=== PATIENT | female | born 1985 | race Caucasian/White ===

== ENCOUNTER 2016-05-03 10:32 | Emergency (ER) | payer OTHER ==
[~2016-05-03] VITALS: Ht 180.3 cm; Wt 162.5 kg
[~2016-05-03 10:32] MED LIST: CYCL10TA6 PO; MTR600X PO; ONDA4TAB46 PO
[2016-05-03 10:50] VITALS: TEMP 36.8; Ht 180.3 cm; Wt 162.5 kg
[2016-05-03] MEDS ORDERED: ALBUT/IPRATROP 3MG/0.5MG NEB 3 ML VIAL INH STA (11:11)
--- NOTE | 2016-05-03 11:17 | EMERGENCY ROOM VISIT NOTE ---
History First contact with patient: 11:04 Chief Complaint: COUGH Stated Complaint: LUNGS, WEEZY,COUGHING ALRAJESH CONTEH Nursing Triage Summary: Dry, hacky cough. "I think I have bronchitis. In the morning I cough up black. I quit smoking almost a year ago." per pt. History of Present Illness The patient is a 31 year old female who presents to the Emergency Room with complaints of cough 1 week. The patient reports that she has had a persistent , hacking cough for the past one week. She reports that at times, the cough is productive of mucus and other times it is dry. She states that she often coughs up a black mucus in the morning, which has been normal for her since she stopped smoking one year ago. The patient reports that prior to 1 year ago, she had been a smoker for 22 years. She reports she has shortness of breath at times with the cough, especially at night. She also reports left ear pain. The patient has not been taking any medications for her cough. She denies any fevers, sore throat, chest pain, abdominal pain, nausea, vomiting, headache or neck pain. She does report her mother was recently diagnosed with bronchitis. Review of Systems A complete 10-point Review of Systems was discussed with the patient, with pertinent positives and negatives listed in the History of Present Illness. All remaining Review of Systems questions can be considered negative unless otherwise specified. Past Medical/Surgical History Medical Problems: (1) Abdominal pain (2) Acute adenoviral follicular conjunctivitis (3) Acute bronchitis (4) Back pain (5) Breast abscess of female (6) Encounter for removal of sutures (7) Finger laceration (8) Laryngitis, acute (9) Left flank pain (10) Pneumonia (11) Pyelonephritis (12) Rectal bleeding (13) Right ovarian cyst (14) Sprain Lumbar Region (15) UTI (lower urinary tract infection) (16) Vomiting Surgical Problems: (1) Hx of cholecystectomy (2) Hx of tonsillectomy (3) S/P spinal fusion Family History Cancer Diabetes mellitus FH: heart disease Social History Smoking Status: Former Smoker Alcohol Use: none Marital Status: single Occupation Status: unemployed Current/Historical Medications Scheduled Methylprednisolone (Medrol Dosepak), 0 PO DAILY Scheduled PRN Cyclobenzaprine Hcl (Flexeril), 10 MG PO TID PRN for Muscle Spasm Ibuprofen (Ibuprofen), 600 MG PO QID PRN for Pain Ondansetron Hcl (Zofran), 4 MG PO Q6H PRN for Nausea Allergies Coded Allergies: Cephalosporins (Verified Allergy, Intermediate, HIVES, 01/17/16) Hydrocortisone (Verified Allergy, Mild, RASH, 01/17/16) Neomycin (Verified Allergy, Mild, 01/17/16) Polymyxin B (Verified Allergy, Mild, 01/17/16) Codeine (Verified Allergy, Unknown, 01/17/16) Physical Exam Vital Signs Date Time Temp Pulse Resp B/P Pulse Ox O2 Delivery O2 Flow Rate FiO2 05/03/16 12:24 88 18 167/98 93 05/03/16 11:00 93 Room Air 05/03/16 10:50 36.8 89 20 150/98 93 Room Air Physical Exam VITALS: Vitals are noted on the nurse's note and reviewed by myself. Vital signs stable. GENERAL: This is a 31-year-old female, in no acute distress, nondiaphoretic, well-developed well-nourished. SKIN: Capillary reflex less than 2 seconds. HEENT: Normocephalic. PERRLA. EOMI. Nares patent. Mucous membranes moist. Neck is supple without nuchal rigidity. HEART: Regular rate and rhythm without murmurs gallops or rubs. LUNGS: Scattered expiratory wheezes. No retractions or accessory muscle use. ABDOMEN: Positive bowel sounds x 4. Soft, nontender to palpation. NEURO: Patient was alert and oriented to person place and time. Medical Decision & Procedures ER Provider Diagnostic Interpretation: TWO VIEW CHEST CLINICAL HISTORY: Cough and dyspnea. FINDINGS: PA and lateral chest radiographs are compared to study dated 06/20/2015. The examination is degraded by large body habitus. The cardiomediastinal silhouette is unremarkable. The lungs and pleural spaces are clear. There is no pneumothorax. The bony thorax appears intact. IMPRESSION: No active disease in the chest. Medications Administered Medications (Trade) Dose Ordered Sig/Jannet Route Start Time Stop Time Status Last Admin Dose Admin Albuterol/ Ipratropium (Duoneb) 3 ml NOW STAT INH 05/03/16 11:11 05/03/16 11:12 DC 05/03/16 11:36 3 ML Albuterol (Ventolin Hfa Inhaler) 2 puffs NOW ONCE INH 05/03/16 12:15 05/03/16 12:16 DC 05/03/16 12:20 2 PUFFS Medical Decision Differential diagnosis includes pneumonia, bronchitis, influenza, asthma exacerbation, pulmonary embolism, among others. The patient was evaluated as above. The patient presents complaining of cough and occasional shortness of breath. Vital signs stable and patient is afebrile on presentation. Chest x-ray was performed and showed no acute findings. The patient was given a DuoNeb treatment with relief of her dyspnea. The patient is a former smoker. She likely has an acute bronchitis. She will be treated with a Medrol Dosepak and albuterol inhaler. The patient does have a documented allergy to hydrocortisone, but states that she has been able to take oral steroids without difficulty. The patient is a borderline diabetic and was informed that if she were to check her blood sugars well taking this medication , they will be higher than normal. She was instructed to follow-up with her primary care provider or return here sooner for worsening shortness of breath or any new/concerning symptoms. Based on the patient's presentation, lab results, and imaging studies, I feel the patient is stable for outpatient treatment. Discharge instructions were reviewed with the patient. The patient verbalized understanding of my assessment and treatment plan and was discharged home in good condition. Impression Primary Impression: Acute bronchitis Departure Information Dispostion Home / Self-Care Condition GOOD Prescriptions Methylprednisolone (MEDROL DOSEPAK) 4 Mg Krunal 0 PO DAILY, #1 PKT Prov: Tahmina Winchester ., RACHANA 05/03/16 Referrals Geri Lee M.D. (MEDICAL) (PCP) Patient Instructions [facility] Additional Instructions You have been prescribed a Medrol Dosepak. This is a steroid which will help decrease your inflammation. Take the medicine as prescribed. Take the ENTIRE 6 day course of the steroids. Use the albuterol inhaler as needed for cough/shortness of breath. Tylenol or ibuprofen as needed for any pain/fevers. Follow-up with her primary care provider if symptoms persist. Return to the emergency department with any worsening shortness of breath, chest pain, high fevers or any other new/concerning symptoms. Problem Qualifiers Primary Impression: Acute bronchitis Bronchitis organism: unspecified organism Qualified Codes: J20.9 - Acute bronchitis, unspecified
--- NOTE | 2016-05-03 11:48 | DIAGNOSTIC IMAGING REPORT ---
TWO VIEW CHEST CLINICAL HISTORY: Cough and dyspnea. FINDINGS: PA and lateral chest radiographs are compared to study dated 06/20/2015. The examination is degraded by large body habitus. The cardiomediastinal silhouette is unremarkable. The lungs and pleural spaces are clear. There is no pneumothorax. The bony thorax appears intact. IMPRESSION: No active disease in the chest. Electronically signed by: Jerome Hernandez M.D. 05/03/2016 11:47 AM Dictated Date/Time: 05/03/2016 11:46 AM
[2016-05-03] MEDS ORDERED: METH4PAK PO (12:09)
[2016-05-03] MEDS ORDERED: ALBUTEROL HFA 8 GM INHALER INH ONE (12:15)
[2016-05-03 12:24] VITALS: BP 167/98; PULSE 88; O2SAT 93
== END 2016-05-03 12:26 | disposition home or self-care (01) ==
LOC: C.EDB 10:33 → C.EDC 12:26
DX: J20.9 Acute bronchitis, unspecified (principal); Z90.49 Acquired absence of other specified parts of digestive tract; Z90.89 Acquired absence of other organs; Z98.890 Other specified postprocedural states; Z80.9 Family history of malignant neoplasm, unspecified; Z83.3 Family history of diabetes mellitus; Z82.49 Family history of ischemic heart disease and other diseases of the circulatory system; Z87.891 Personal history of nicotine dependence; Z88.1 Allergy status to other antibiotic agents; Z88.5 Allergy status to narcotic agent

== ENCOUNTER 2017-06-03 08:14 | Emergency (ER) | payer OTHER ==
[~2017-06-03] VITALS: Ht 180.3 cm; Wt 150.8 kg
[~2017-06-03 08:14] MED LIST changes: -ONDA4TAB46 PO
[2017-06-03 08:18] VITALS: TEMP 36.6; Ht 180.3 cm; Wt 150.8 kg
[2017-06-03] MEDS ORDERED: SODIUM CHLORIDE 0.9% 1000ML 1,000 ML IV STA (08:49)
[2017-06-03] MEDS ORDERED: ONDANSETRON INJ 2 MG/ML 2 ML VIAL IV STA (08:49)
[2017-06-03 09:07] LABS: BASO % 0.2 %; BASO ABS # 0.03 K/uL (0-0.2); EOS % 1.9 %; EOS ABS # 0.24 K/uL (0-0.5); HEMATOCRIT 44.6 % (37-47); HEMOGLOBIN 15.7 g/dL (12.0-16.0); IG# 0.04 K/uL (0.00-0.02); LYMPH % 22.7 %; LYMPH ABS # 2.81 K/uL (1.2-3.4); MEAN CELL VOLUME 91.8 fL (80-100); MEAN CORPUSCULAR HEMOGLOBIN 32.3 pg (25-34); MEAN CORPUSCULAR HGB CONC 35.2 g/dl (32-36); MEAN PLATELET VOLUME 9.9 fL (7.4-10.4); MONO % 5.9 %; MONO ABS # 0.73 K/uL (0.11-0.59); NEUT ABS # 8.51 K/uL (1.4-6.5); PLATELET COUNT 315 K/uL (130-400); RED CELL DISTRIBUTION WIDTH CV 12.4 % (11.5-14.5); RED CELL DISTRIBUTION WIDTH SD 41.6 fL (36.4-46.3); WHITE BLOOD COUNT 12.36 K/uL (4.8-10.8)
[2017-06-03] MEDS ORDERED: OPTIRAY 320 IV PRN (09:15)
[2017-06-03 09:16] LABS: INR 0.9 (0.9-1.1); PTT PATIENT 23.9 SECONDS (21.0-31.0)
[2017-06-03 09:23] LABS: BLOOD UREA NITROGEN 10 mg/dl (7-18); CREATININE 1.13 mg/dl (0.60-1.20); GLUCOSE 209 mg/dl (70-99)
[2017-06-03 09:24] LABS: ALBUMIN 3.7 gm/dl (3.4-5.0); ALT/SGPT 51 U/L (12-78); AST/SGOT 27 U/L (15-37); CALCIUM 9.1 mg/dl (8.5-10.1); CARBON DIOXIDE 26 mmol/L (21-32); LIPASE 273 U/L (73-393); POTASSIUM 4.3 mmol/L (3.5-5.1); SODIUM 135 mmol/L (136-145)
[2017-06-03 09:26] LABS: ALKALINE PHOSPHATASE 81 U/L (45-117); TOTAL PROTEIN 8.6 gm/dl (6.4-8.2)
--- NOTE | 2017-06-03 12:00 | DIAGNOSTIC IMAGING REPORT ---
CT SCAN OF THE ABDOMEN AND PELVIS WITH IV CONTRAST CLINICAL HISTORY: Generalized abdominal pain. Rectal bleeding. COMPARISON STUDY: Abdominal CT dated 08/23/2014. TECHNIQUE: Following the IV administration of 94 cc of Optiray 320, CT scan of the abdomen and pelvis is performed from the lung bases to the proximal femora. Images are reviewed in the axial, sagittal, and coronal planes. IV contrast was administered without complication. A dose lowering technique was utilized adhering to the principles of ALARA. The examination is degraded by large body habitus, and by streak artifact from the body wall abutting the CT gantry. CT DOSE: 1427.59 mGycm FINDINGS: Lung bases: The heart is normal in size and without pericardial effusion. The lung bases are clear. Liver: The contrast-enhanced liver is enlarged, measuring 19.5 cm in length. The liver demonstrates diffusely diminished attenuation consistent with severe hepatic steatosis. There is no intrahepatic biliary ductal dilatation. The hepatic veins and portal veins are patent. Gallbladder: Surgically absent noting clips in the gallbladder fossa. Spleen: Normal in size and attenuation. Pancreas: Unremarkable. Adrenal glands: Unremarkable. Kidneys: The contrast enhanced kidneys are normal in size and without hydronephrosis. The kidneys enhance symmetrically. Abdominal vasculature: The abdominal aorta is normal in course and caliber. Bowel: The small bowel and colon are normal in course and caliber. The appendix is well-visualized and normal. Peritoneum: There is no intraperitoneal free air or abdominal ascites. There is a small fat-containing umbilical hernia. Lymphadenopathy: None. Pelvic viscera: The bladder is normal as visualized. The uterus is normal in appearance noting an intrauterine device in place. There are bilateral ovarian follicles. Skeletal structures: No lytic or blastic lesions are seen. There are postoperative changes from L4 -L5 spinal fusion. IMPRESSION: 1. There are no acute infectious or inflammatory findings in the abdomen or pelvis. 2. Hepatomegaly and severe hepatic steatosis. Electronically signed by: Jerome Hernandez M.D. 06/03/2017 11:59 AM Dictated Date/Time: 06/03/2017 11:55 AM
--- NOTE | 2017-06-03 12:47 | EMERGENCY ROOM VISIT NOTE ---
History First contact with patient: 08:22 Chief Complaint: RECTAL BLEEDING Stated Complaint: BLEEDING FROM RECTUM,VOMITING Nursing Triage Summary: Clots on the toilet paper History of Present Illness The patient is a 32 year old female who presents to the Emergency Room with complaints of rectal bleeding and one episode of blood in her vomit. The patient states that on Friday she has blood in her stools. Today she noticed that initially she had normal stools in the toilet and then passed blood clots. She also vomited one time this morning and saw bright red blood in the vomit. She also states that her food was undigested this morning when she vomited. She states she ate last night at 5 PM and the food she vomited this morning at 7 AM was undigested. The patient has not eaten anything today. The patient is also complaining of some upper abdominal pain and lower abdominal pain. The patient states that she was seen in the emergency room in January 2016 for the same reasons and followed up with her family doctor. No other testing was initiated at that time. The patient denies any shortness of breath or chest pain. The patient recently quit smoking. She states there is a family history on her mother side of colon cancer. He is currently undergoing education and evaluation for possible gastric bypass. Review of Systems 10 system review was performed and was negative unless stated otherwise history of present illness. Past Medical/Surgical History Medical Problems: (1) Abdominal pain (2) Acute adenoviral follicular conjunctivitis (3) Acute bronchitis (4) Back pain (5) Breast abscess of female (6) Encounter for removal of sutures (7) Finger laceration (8) Laryngitis, acute (9) Left flank pain (10) Pneumonia (11) Pyelonephritis (12) Rectal bleeding (13) Right ovarian cyst (14) Sprain Lumbar Region (15) UTI (lower urinary tract infection) (16) Vomiting Surgical Problems: (1) Hx of cholecystectomy (2) Hx of tonsillectomy (3) S/P spinal fusion Family History Cancer Diabetes mellitus FH: heart disease Social History Smoking Status: Never Smoker Alcohol Use: none Marital Status: single Occupation Status: unemployed Current/Historical Medications Scheduled PRN Cyclobenzaprine Hcl (Flexeril), 10 MG PO TID PRN for Muscle Spasm Ibuprofen (Ibuprofen), 600 MG PO QID PRN for Pain Physical Exam Vital Signs Date Time Temp Pulse Resp B/P (MAP) Pulse Ox O2 Delivery O2 Flow Rate FiO2 06/03/17 10:49 68 20 139/80 100 Room Air 06/03/17 09:23 80 20 134/88 99 Room Air 06/03/17 08:18 36.6 82 18 167/82 99 Room Air Physical Exam GENERAL: Morbidly obese 32-year-old female appears in no acute distress. MENTAL Status: Alert and oriented 3. MOUTH: Mucosa is moist NECK: Supple, no lymphadenopathy noted. No carotid bruits noted. LUNGS: Clear auscultation without wheezes rales or rhonchi. CARDIAC: Regular rate and rhythm without murmur. Pulses is full and equal throughout. BACK: No CVA tenderness noted. ABDOMEN: Positive bowel sounds all 4 quadrants. Soft, tenderness to palpation in the epigastric region and entire lower abdomen. Difficult to evaluate for organomegaly or masses secondary to patient size. RECTAL: There is a small external hemorrhoid noted at the 1 o'clock position without any active bleeding. Anal sphincter tone intact. No palpable internal masses. Stool guaiac was negative. EXTREMITIES: No cyanosis or edema noted. Medical Decision & Procedures ER Provider Diagnostic Interpretation: CT SCAN OF THE ABDOMEN AND PELVIS WITH IV CONTRAST CLINICAL HISTORY: Generalized abdominal pain. Rectal bleeding. COMPARISON STUDY: Abdominal CT dated 08/23/2014. TECHNIQUE: Following the IV administration of 94 cc of Optiray 320, CT scan of the abdomen and pelvis is performed from the lung bases to the proximal femora. Images are reviewed in the axial, sagittal, and coronal planes. IV contrast was administered without complication. A dose lowering technique was utilized adhering to the principles of ALARA. The examination is degraded by large body habitus, and by streak artifact from the body wall abutting the CT gantry. CT DOSE: 1427.59 mGycm FINDINGS: Lung bases: The heart is normal in size and without pericardial effusion. The lung bases are clear. Liver: The contrast-enhanced liver is enlarged, measuring 19.5 cm in length. The liver demonstrates diffusely diminished attenuation consistent with severe hepatic steatosis. There is no intrahepatic biliary ductal dilatation. The hepatic veins and portal veins are patent. Gallbladder: Surgically absent noting clips in the gallbladder fossa. Spleen: Normal in size and attenuation. Pancreas: Unremarkable. Adrenal glands: Unremarkable. Kidneys: The contrast enhanced kidneys are normal in size and without hydronephrosis. The kidneys enhance symmetrically. Abdominal vasculature: The abdominal aorta is normal in course and caliber. Bowel: The small bowel and colon are normal in course and caliber. The appendix is well-visualized and normal. Peritoneum: There is no intraperitoneal free air or abdominal ascites. There is a small fat-containing umbilical hernia. Lymphadenopathy: None. Pelvic viscera: The bladder is normal as visualized. The uterus is normal in appearance noting an intrauterine device in place. There are bilateral ovarian follicles. Skeletal structures: No lytic or blastic lesions are seen. There are postoperative changes from L4 -L5 spinal fusion. IMPRESSION: 1. There are no acute infectious or inflammatory findings in the abdomen or pelvis. 2. Hepatomegaly and severe hepatic steatosis. Electronically signed by: Jerome Hernandez M.D. 06/03/2017 11:59 AM Laboratory Results 06/03/17 08:56 Red Blood Count 4.86, Mean Corpuscular Volume 91.8, Mean Corpuscular Hemoglobin 32.3, Mean Corpuscular Hemoglobin Concent 35.2, Mean Platelet Volume 9.9, Neutrophils (%) (Auto) 69.0, Lymphocytes (%) (Auto) 22.7, Monocytes (%) (Auto) 5.9, Eosinophils (%) (Auto) 1.9, Basophils (%) (Auto) 0.2, Neutrophils # (Auto) 8.51, Lymphocytes # (Auto) 2.81, Monocytes # (Auto) 0.73, Eosinophils # (Auto) 0.24, Basophils # (Auto) 0.03 06/03/17 08:56 Test 06/03/17 08:56 White Blood Count 12.36 K/uL (4.8-10.8) Red Blood Count 4.86 M/uL (4.2-5.4) Hemoglobin 15.7 g/dL (12.0-16.0) Hematocrit 44.6 % (37-47) Mean Corpuscular Volume 91.8 fL (80-100) Mean Corpuscular Hemoglobin 32.3 pg (25-34) Mean Corpuscular Hemoglobin Concent 35.2 g/dl (32-36) Platelet Count 315 K/uL (130-400) Mean Platelet Volume 9.9 fL (7.4-10.4) Neutrophils (%) (Auto) 69.0 % Lymphocytes (%) (Auto) 22.7 % Monocytes (%) (Auto) 5.9 % Eosinophils (%) (Auto) 1.9 % Basophils (%) (Auto) 0.2 % Neutrophils # (Auto) 8.51 K/uL (1.4-6.5) Lymphocytes # (Auto) 2.81 K/uL (1.2-3.4) Monocytes # (Auto) 0.73 K/uL (0.11-0.59) Eosinophils # (Auto) 0.24 K/uL (0-0.5) Basophils # (Auto) 0.03 K/uL (0-0.2) RDW Standard Deviation 41.6 fL (36.4-46.3) RDW Coefficient of Variation 12.4 % (11.5-14.5) Immature Granulocyte % (Auto) 0.3 % Immature Granulocyte # (Auto) 0.04 K/uL (0.00-0.02) Prothrombin Time 9.8 SECONDS (9.0-12.0) Prothromb Time International Ratio 0.9 (0.9-1.1) Activated Partial Thromboplast Time 23.9 SECONDS (21.0-31.0) Partial Thromboplastin Ratio 0.9 Anion Gap 6.0 mmol/L (3-11) Est Creatinine Clear Calc Drug Dose 113.8 ml/min Estimated GFR () 73.4 Estimated GFR (Non- 63.4 BUN/Creatinine Ratio 8.6 (10-20) Calcium Level 9.1 mg/dl (8.5-10.1) Total Bilirubin 0.4 mg/dl (0.2-1) Direct Bilirubin < 0.1 mg/dl (0-0.2) Aspartate Amino Transf (AST/SGOT) 27 U/L (15-37) Alanine Aminotransferase (ALT/SGPT) 51 U/L (12-78) Alkaline Phosphatase 81 U/L (45-117) Total Protein 8.6 gm/dl (6.4-8.2) Albumin 3.7 gm/dl (3.4-5.0) Lipase 273 U/L (73-393) Medications Administered Medications (Trade) Dose Ordered Sig/Jannet Route Start Time Stop Time Status Last Admin Dose Admin Sodium Chloride 1,000 ml @ 999 mls/hr Q1H1M STAT IV 06/03/17 08:49 06/03/17 09:49 DC 06/03/17 08:49 999 MLS/HR Ondansetron HCl (Zofran Inj) 4 mg NOW STAT IV 06/03/17 08:49 06/03/17 08:51 DC 06/03/17 09:19 4 MG ED Course The patient was evaluated. EMR medication list were reviewed. IV access was obtained. CBC and differential, renal profile, LFTs and lipase levels were ordered. White count was only slightly elevated and glucose was elevated at 203 but this was nonfasting. Remainder labs are unremarkable. CT of the abdomen and pelvis was ordered interpreted by the radiologist as above without any acute findings. The patient was informed of the findings. 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 Medical Decision Differential diagnosis includes diverticulitis, GI bleed, small bowel obstruction, peptic ulcer disease [place] Drug Monitoring Program Search Results: patient reviewed within database Medication Reconcilliation Current Medication List: was personally reviewed by sc Blood Pressure Screening Patient's blood pressure: Normal blood pressure Impression Primary Impression: Rectal bleeding Additional Impression: Abdominal pain Departure Information Dispostion Home / Self-Care Condition GOOD Referrals Geri Lee M.D. (MEDICAL) (PCP) Forms HOME CARE DOCUMENTATION FORM, IMPORTANT VISIT INFORMATION, WORK / SCHOOL INSTRUCTIONS Patient Instructions Abdominal Pain - [facility], [facility] Additional Instructions Tylenol as needed for pain. Avoid spicy or acidic foods. Follow-up with gastroenterology as directed. Further evaluation and treatment per gastroenterology. Problem Qualifiers Additional Impression: Abdominal pain Abdominal location: lower abdomen, unspecified Qualified Codes: R10.30 - Lower abdominal pain, unspecified
[2017-06-03 13:19] VITALS: BP 143/78; PULSE 75; O2SAT 97
== END 2017-06-03 13:20 | disposition home or self-care (01) ==
LOC: C.EDB 08:15
DX: K62.5 Hemorrhage of anus and rectum (principal); R10.30 Lower abdominal pain, unspecified; Z87.891 Personal history of nicotine dependence; Z80.0 Family history of malignant neoplasm of digestive organs; Z90.49 Acquired absence of other specified parts of digestive tract

== ENCOUNTER 2017-06-16 10:01 | Emergency (ER) | payer OTHER ==
[~2017-06-16] VITALS: Ht 180.3 cm; Wt 150.0 kg
[2017-06-16 10:12] VITALS: TEMP 36.7; Ht 180.3 cm; Wt 150.0 kg
[2017-06-16] MEDS ORDERED: MoRPHine SULFATE 10 MG/ML CARP/VIAL IM STA (10:32)
[2017-06-16] MEDS ORDERED: CYCL10TA6 PO (10:43)
--- NOTE | 2017-06-16 10:56 | DIAGNOSTIC IMAGING REPORT ---
LUMBAR SPINE 2 OR 3 VIEWS CLINICAL HISTORY: lower back pain COMPARISON STUDY: 05/06/2015 FINDINGS: There are surgical clips within the right upper quadrant consistent with a prior cholecystectomy. An IUD is visualized. There are postsurgical changes present within the lower lumbar spine. There is evidence for an L5-S1 discectomy and interbody fusion. There is posterior pedicle screw fixation with pedicle screws the L4-L5 and S1 levels with adjoining spinal rods. Degenerative changes are present at the T11-12 level. Early posterior osteophytes are visualized the L3-4 level. There are no acute fractures. IMPRESSION: Postsurgical changes. No acute fractures or subluxations. Electronically signed by: Nura Wynn M.D. 06/16/2017 10:55 AM Dictated Date/Time: 06/16/2017 10:53 AM
[2017-06-16] MEDS ORDERED: OXYC1TAB3 PO (11:12)
[2017-06-16 11:27] VITALS: BP 167/90; PULSE 69; O2SAT 97
[2017-06-16] MEDS ORDERED: MTR600X PO (14:52)
--- NOTE | 2017-06-16 17:01 | EMERGENCY ROOM VISIT NOTE ---
History Report prepared by Miroslava: Mahendra Ac Under the Supervision of: Dr. Jared Malik D.O. First contact with patient: 10:16 Chief Complaint: BACK PAIN Stated Complaint: BACK WENT OUT History of Present Illness The patient is a 32 year old female who presents to the Emergency Room with complaints of intermittent "spasms" on her left lower back that began this morning at 0700, 3.5 hours ago. The pain is worsened with general movements. Pain is focal to the lower back. No radiation down the legs. Without movement pain is fairly nonexistent. It significantly worsens with any kind of movement or twisting turning. The patient states that she has had these episodes intermittently since she had a spinal fusion. She denies any traumas, trips, or falls that could have precipitated this episode. She also denies any numbness/ tingling in her legs or groins. She has not experienced any associated headache , change in vision, fevers, chest pain, shortness of breath, nausea, vomiting, diarrhea, pain with urination, and melena. Source of History: patient Onset: 3.5 hours ago Position: back (lower) Quality: other (Spasms) Timing: intermittent Modifying Factors (Worsening): movement Associated Symptoms: No weakness, No numbness Review of Systems See HPI for pertinent positives & negatives. A total of 10 systems reviewed and were otherwise negative. Past Medical & Surgical Medical Problems: (1) Abdominal pain (2) Acute adenoviral follicular conjunctivitis (3) Acute bronchitis (4) Back pain (5) Breast abscess of female (6) Encounter for removal of sutures (7) Finger laceration (8) Laryngitis, acute (9) Left flank pain (10) Pneumonia (11) Pyelonephritis (12) Rectal bleeding (13) Right ovarian cyst (14) Sprain Lumbar Region (15) UTI (lower urinary tract infection) (16) Vomiting Surgical Problems: (1) Hx of cholecystectomy (2) Hx of tonsillectomy (3) S/P spinal fusion Family History Cancer Diabetes mellitus FH: heart disease Social History Smoking Status: Never Smoker Alcohol Use: none Marital Status: single Occupation Status: unemployed Current/Historical Medications Scheduled PRN Cyclobenzaprine Hcl (Flexeril), 10 MG PO TID PRN for Muscle Spasm Ibuprofen (Ibuprofen), 600 MG PO QID PRN for Pain Oxycodone Immediate Rel Tab (Roxicodone Ir), 5 MG PO Q6H PRN for Pain Allergies Coded Allergies: Cephalosporins (Verified Allergy, Intermediate, HIVES, 06/16/17) Hydrocortisone (Verified Allergy, Mild, RASH, 06/16/17) Neomycin (Verified Allergy, Mild, 06/16/17) Polymyxin B (Verified Allergy, Mild, 06/16/17) Codeine (Verified Allergy, Unknown, 06/16/17) Physical Exam Vital Signs Date Time Temp Pulse Resp B/P (MAP) Pulse Ox O2 Delivery O2 Flow Rate FiO2 06/16/17 11:27 69 18 167/90 97 06/16/17 10:12 36.7 88 18 127/78 100 Room Air Physical Exam GENERAL: Sitting up in bed, alert, well appearing, well nourished, no distress, non-toxic EYE EXAM: normal conjunctiva. OROPHARYNX: no exudate, no erythema, lips, buccal mucosa, and tongue normal and mucous membranes are moist NECK: supple, no nuchal rigidity, no adenopathy, non-tender LUNGS: Clear to auscultation. Normal chest wall mechanics HEART: no murmurs, S1 normal and S2 normal ABDOMEN: abdomen soft, non-tender, normo-active bowel sounds, no masses, no rebound or guarding. BACK: Back is symmetrical on inspection and there is no deformity, There is acute reproducible tenderness in the lumbar paraspinal region, tracking to the gluteus. SKIN: no rashes and no bruising UPPER EXTREMITIES: upper extremities are grossly normal. LOWER EXTREMITIES: No pitting edema. Flexion/extension of hips, knees, ankles, and EHL are 5/5 bilaterally. Positive straight leg raise on the left. NEURO EXAM: Normal sensorium, cranial nerves II-XII grossly intact, normal speech, no gross weakness of arms, no gross weakness of legs. Medical Decision & Procedures ER Provider Diagnostic Interpretation: Radiology results as stated below per my review and the radiologist's interpretation: LUMBAR SPINE 2 OR 3 VIEWS CLINICAL HISTORY: lower back pain COMPARISON STUDY: 05/06/2015 FINDINGS: There are surgical clips within the right upper quadrant consistent with a prior cholecystectomy. An IUD is visualized. There are postsurgical changes present within the lower lumbar spine. There is evidence for an L5-S1 discectomy and interbody fusion. There is posterior pedicle screw fixation with pedicle screws the L4-L5 and S1 levels with adjoining spinal rods. Degenerative changes are present at the T11-12 level. Early posterior osteophytes are visualized the L3-4 level. There are no acute fractures. IMPRESSION: Postsurgical changes. No acute fractures or subluxations. Electronically signed by: Nura Wynn M.D. 06/16/2017 10:55 AM Dictated Date/Time: 06/16/2017 10:53 AM Medications Administered Medications (Trade) Dose Ordered Sig/Jannet Route Start Time Stop Time Status Last Admin Dose Admin Morphine Sulfate (MoRPHine SULFATE INJ) 6 mg NOW STAT IM 06/16/17 10:32 06/16/17 10:36 DC 06/16/17 10:53 6 MG ED Course ED COURSE: Vital signs were reviewed and showed normal vitals. The patients medical record was reviewed The above diagnostic studies were performed and reviewed. ED treatments and interventions as stated above. 1030: The patient was evaluated in room B8. A complete history and physical examination was performed. 1032: Ordered Morphine Sulfate 6 mg IM. 1115: Upon reevaluation, the patient is resting in bed.I discussed my findings with the patient and she understands and agrees with the treatment plan. Based on the patients age, coexisting illnesses, exam and lab findings the decision to treat as an outpatient was made. The patient remained stable while under my care. The patient appeared well at the time of discharge. Medical Decision Differential diagnoses includes but is not limited to lumbar radiculopathy, kidney stone, muscle strain, facture, cauda equina, mass, and disc herniation. Patient is a 32-year-old female who presents the ER for lower back spasms. She notes she gets this intermittently over the past several years after her spinal fusion. She denies any bowel or bladder symptoms. No numbness in the groin. No numbness or weakness in the legs. Able to ambulate without difficulty. Neurologically intact. On exam she has severe reproducible tenderness lower lumbar. No signs of cauda equina. No risk factors to suggest epidural abscess i.e. denies IV drug use, history of cancer or recent surgery. Patient was given IV morphine. X-rays were unremarkable. Patient was updated at bedside and discharged follow-up with PCP as an outpatient. Discussed with Pt concerning signs and symptoms to watch out for. Pt was instructed to follow up with their PCP and discussed with the patient their option to return to the ED at anytime for persistent or worsening symptoms. The appropriate anticipatory guidance and out-patient management, including indications for return to the emergency department, were explained at length to the patient and understood. [place] Drug Monitoring Program Search Results: patient reviewed within database, no issues identified Medication Reconcilliation Current Medication List: was personally reviewed by me Blood Pressure Screening Patient's blood pressure: Normal blood pressure Impression Primary Impression: Sciatica Scribe Attestation The scribe's documentation has been prepared under my direction and personally reviewed by me in its entirety. I confirm that the note above accurately reflects all work, treatment, procedures, and medical decision making performed by me. Departure Information Dispostion Home / Self-Care Prescriptions Oxycodone Immediate Rel Tab (ROXICODONE IR) 5 Mg Tab 5 MG PO Q6H Y for Pain, #10 TAB Prov: Jared Malik, DO 06/16/17 Referrals Geri Lee M.D. (MEDICAL) (PCP) Forms HOME CARE DOCUMENTATION FORM, IMPORTANT VISIT INFORMATION Patient Instructions My [facility] Additional Instructions Please follow up with your primary care doctor with in the next 24 hours. Any worsening of your symptoms, please return to the ED immediately. This includes any fevers greater than 100.4, worsening pain, weakness or numbness in the legs , numbness in the groin, unable to move her bowels, or any other concerning signs or symptoms from your standpoint. Please take Tylenol or Motrin as needed for pain. Do not lift anything heavier than 8 pounds. You were given medications during this visit that will inhibit your ability to drive, operate machinery and work. Please do NOT drive, operate machinery or work for the next 12hrs. You were also given a prescription for a narcotic. While taking this medication you should also not drive, operate machinery and or work. Problem Qualifiers Primary Impression: Sciatica Laterality: left Qualified Codes: M54.32 - Sciatica, left side
== END 2017-06-16 11:28 | disposition home or self-care (01) ==
LOC: C.EDB 10:02
DX: M54.32 Sciatica, left side (principal); Z88.1 Allergy status to other antibiotic agents; Z88.8 Allergy status to other drugs, medicaments and biological substances; Z88.5 Allergy status to narcotic agent

== ENCOUNTER 2022-01-28 07:15 | Observation (INO) ==
[2022-01-28] MEDS ORDERED: MoRPHine SULFATE 4 MG/ML 1 ML CARP\\VIAL IV STA (07:33)
--- NOTE | 2022-01-28 07:38 | Communication Note ---
Date of Service: January 28, 2022 I personally saw the patient. Patient's case was discussed with Dr. Chang, ED attending, and I participated in MDM. Please see attending documentation for full details. Resident Activity Tracking Resident Involvement: Resident Care Provided Care Provided: Adult ED
[2022-01-28 07:58] LABS: Hematocrit (blood only) 43.6 % (34.1-44.9); Hemoglobin 15.3 g/dl (12.0-16.0); Mean Corpuscular Hemoglobin 31.5 pg (25.0-34.0); Mean Corpuscular Hgb Conc 35.1 g/dL (32.0-36.0); Mean Corpuscular Volume 89.7 fL (80.0-100.0); Mean Platelet Volume 9.8 fL (9.4-12.3); Platelet Count 413 K/uL (130-400); RDW Coefficient of Variation 11.6 % (11.5-14.5); Red Blood Count 4.86 M/uL (3.93-5.22); White Blood Count 15.54 K/ul (4.8-10.8)
--- NOTE | 2022-01-28 07:58 | Emergency Department Note ---
Impression & Plan Abscess, Tobacco use, Acute dehydration, Back pain, Acute hyperglycemia ED Provider Note NAME: ROSALIE PALACIOS AGE: 37 SEX: F : 1985 ARRIVES VIA: Walk-In INFORMANT: Patient, ED PROVIDER(S): Tunde Chang MD Chief Complaint: Back pain HPI: 37yo female with PMHx significant for lumbar spinal fusion surgery in 2009 who presents to ED for [id number] mid central back pain. Patient reports that she has chronic low back since her surgery for which she takes Ibuprofen 600mg PO daily with relief, but woke up two days ago with severe mid central back pain that is unlike her chronic pain. Pain has been 6-8/10 in severity, is non-radiating, and patient denies LE weakness/numbness/tingling, saddle ane sthesia or bowel/urine changes. She ran out of her home Ibuprofen and thus has not tried anything for current pain. Of note patient reports chronic recurring abscesses on bilateral inner thighs that usually open and drain purulent fluid for several days and then resolve, before recurring several weeks later. Patient currently has a left inner thigh abscess that opened on its own this morning and is currently draining purulent, bloody fluid. Patient has some pain associated with the abscess but not severe, and denies fever/chills, weakness, or decreased appetite. Patient denies prior history of hidradenitis. ROS: See HPI for pertinent positives and negatives. A total of 10 systems were revi ewed and otherwise negative. Past medical history: See below Surgical history: See below Social history: See below Physical Exam: GENERAL: NAD, wearing a mask, non-toxic. Poor hygiene, wearing glasses. EYE EXAM: Normal conjunctiva. PERRL, no anisocoria and EOM's grossly intact w/o pain. NECK: Supple, no nuchal rigidity, no adenopathy, non-tender. No signs of meningismus. FROM of the neck with good chin to chest and neck extension. No stridor. LUNGS: Clear to auscultation. Normal chest wall mechanics. HEART: Tachycardic and regular, no MRG. ABDOMEN: Abdomen soft, non-tender, normo-active bowel sounds, no masses, no rebound or guarding. BACK: No CVA TTP. Lower thoracic midline possible lipoma with no overlying skin changes approximately 2 x 1 cm, no bruising, mild TTP SKIN: Cellulitis noted to the left lower abdominal wall with associated drainage. UPPER EXTREMITIES: Upper extremities are grossly normal. LOWER EXTREMITIES: Grossly normal, no edema. No saddle anesthesia. NEURO EXAM: A&O x3, cranial nerves II-XII grossly intact, normal speech, moves all 4 extremities. Differential diagnoses: Cellulitis, abscess, MRSA infection, DVT, necrotizing fasciitis, dermatitis, drug eruption, allergic reaction, as well as other pathologies. Course: Patient was seen and evaluated the bedside. Full history physical exam was performed. Imaging Studies: See Below Cardiac monitoring: An order was placed for continuous cardiac monitoring. The monitor shows a rate of 112 with tachycardic and regular rhythm. MDM: Patient presents due to concern for back pain and lower abdominal wall cellulitis. The patient did have bladder completed which shows normal H&H. Patient's white count is elevated 15 with thrombocytosis at 413. Kidney function grossly unremarkable. Pseudohyponatremia 129. Elevations in ESR and CRP. Glucose of 471. IV fluids ordered. Patient does have a prior history of some elevated blood sugars but is not currently on treatment. Given the patient's lower abdominal wall cellulitis with uncontrolled diabetes to believe the patient would benefit from admission at this time. Thoracic back x-ray ordered. Degenerative changes noted but without any obvious fracture patient does have a palpable area over the lower midline thoracic spine which may be con sistent with a lipoma. Patient has no overlying rash or skin changes. Patient was ordered clinda. Patient was admitted to the medicine service. Past Med/Surg History Medical History Abscess Breast abscess of female Diabetes Pyelonephritis Surgical History Hx of cholecystectomy Hx of tonsillectomy S/P spinal fusion Social History Smoking Status: Current every day smoker Tobacco Type: Cigarettes Preferred Language: Swedish Feels Safe at Home: Yes Allergies Allergies Allergy/AdvReac Type Severity Reaction Status Date / Time codeine Allergy Severe BLOOD CLOT Verified 07/17/21 23:30 Cephalosporins Allergy Intermediate HIVES Verified 07/17/21 23:30 hydrocortisone Allergy Mild RASH Verified 07/17/21 23:30 neomycin Allergy Mild RASH Verified 07/17/21 23:30 polymyxin B Allergy Mild RASH Verified 07/17/21 23:30 Home Meds Home Medications Medication Instructions Recorded Confirmed acetaminophen 500 mg tablet 1,000 mg PO TID PRN Pain 07/17/21 07/17/21 (Tylenol Extra Strength) Previous Rx's Medication Instructions Recorded albuterol sulfate 90 mcg/actuation 2 puffs inhalation 6XD PRN 07/17/21 aerosol inhaler shortness of breath or wheezing #6.7 grams benzonatate 100 mg capsule 100 mg PO TID PRN cough #15 caps 07/17/21 Results & Data (ED) Vital Signs Vital Signs - 24 hr 01/28/22 07:18 01/28/22 09:16 01/28/22 08:09 Temperature 36.5 C Temperature Source Temporal Artery Scan Pulse Rate 111 H 103 H Pulse Rate [Apical] 100 H Pulse Rate from SpO2 Sensor 104 H Pulse Rhythm Regular Respiratory Rate 16 18 14 Respiratory Effort / Characteristics Non-Labored Spontaneous Respiratory Depth Normal Blood Pressure 140/83 Blood Pressure [Left Arm] 112/75 Blood Pressure Mean 102 Blood Pressure Mean [Left Arm] 87 Pulse Oximetry 98 96 96 Oxygen Delivery Method Room Air Room Air Sepsis Recent Fever Within 48 Hours No Sepsis New/Unexplained Change in Mental Status No Sepsis Action Taken by Nursing No Action Required 01/28/22 08:18 01/28/22 09:06 01/28/22 10:00 Temperature Temperature Source Pulse Rate 105 H Pulse Rate [Apical] Pulse Rate from SpO2 Sensor 107 H Pulse Rhythm Respiratory Rate 16 Respiratory Effort / Characteristics Respiratory Depth Blood Pressure 112/75 139/98 Blood Pressure [Left Arm] Blood Pressure Mean 87 111 Blood Pressure Mean [Left Arm] Pulse Oximetry 97 95 98 Oxygen Delivery Method Sepsis Recent Fever Within 48 Hours Sepsis New/Unexplained Change in Mental Status Sepsis Action Taken by Nursing 01/28/22 10:00 01/28/22 11:00 01/28/22 11:00 Temperature Temperature Source Pulse Rate 100 H 92 H Pulse Rate [Apical] Pulse Rate from SpO2 Sensor Pulse Rhythm Respiratory Rate 29 H 9 L Respiratory Effort / Characteristics Respiratory Depth Blood Pressure 128/92 118/86 Blood Pressure [Left Arm] Blood Pressure Mean 104 96 Blood Pressure Mean [Left Arm] Pulse Oximetry 97 Oxygen Delivery Method Sepsis Recent Fever Within 48 Hours Sepsis New/Unexplained Change in Mental Status Sepsis Action Taken by Nursing 01/28/22 11:00 Temperature Temperature Source Pulse Rate Pulse Rate [Apical] 104 H Pulse Rate from SpO2 Sensor Pulse Rhythm Respiratory Rate 18 Respiratory Effort / Characteristics Respiratory Depth Blood Pressure Blood Pressure [Left Arm] 118/86 Blood Pressure Mean Blood Pressure Mean [Left Arm] 96 Pulse Oximetry 97 Oxygen Delivery Method Room Air Sepsis Recent Fever Within 48 Hours Sepsis New/Unexplained Change in Mental Status Sepsis Action Taken by [facility] Medications Current Medication List: was personally reviewed by me Laboratory Data Attestation: I reviewed the patient's lab results. Result diagrams: 01/28/22 07:49 01/28/22 07:49 Lab Results 01/28/22 01/28/22 01/28/22 Range/Units 07:49 07:49 07:49 WBC 15.54 H (4.8-10.8) K/ul RBC 4.86 (3.93-5.22) M/uL Hgb 15.3 (12.0-16.0) g/dl Hct 43.6 (34.1-44.9) % MCV 89.7 (80.0-100.0) fL MCH 31.5 (25.0-34.0) pg MCHC 35.1 (32.0-36.0) g/dL RDW Std Deviation 38.0 (36.4-46.3) fL RDW Coeff of Ashley 11.6 (11.5-14.5) % Plt Count 413 H (130-400) K/uL MPV 9.8 (9.4-12.3) fL Immature Gran % (Auto) 0.5 % Neut % (Auto) 57.1 % Lymph % (Auto) 32.9 % Canadian % (Auto) 7.7 % Eos % (Auto) 1.3 % Baso % (Auto) 0.5 % Neut # (Auto) 8.90 H (1.4-6.5) K/uL Lymph # (Auto) 5.11 H (1.2-3.4) K/uL Canadian # (Auto) 1.19 H (0.24-0.82) K/uL Eos # (Auto) 0.20 (0-0.50) K/uL Baso # (Auto) 0.07 (0-0.2) K/uL Immature Gran # (Auto) 0.07 H (0.00-0.02) K/uL Polychromasia 1+ ESR 50 H (0-20) mm/hr Sodium 129 L (136-145) mmol/L Potassium 3.8 (3.5-5.1) mmol/L Chloride 97 L (98-107) mmol/L Carbon Dioxide 25 (21-32) mmol/L Anion Gap 7 (3-11) BUN 15 (6-23) mg/dl Creatinine 0.88 (0.6-1.2) mg/dl Est Cr Clr Drug Dosing 129.5 ml/min Est GFR ( Amer) 95.9 ml/min Est GFR (Non-Af Amer) 82.8 ml/min BUN/Creatinine Ratio 17.0 (10-20) Glucose 471 H* (70-99(Fasting)) mg/dl Estimat Average Glucose mg/dl Hemoglobin A1c (4.5-5.6) % Calcium 8.7 (8.5-10.1) mg/dl Total Bilirubin 0.4 (0.2-1.0) mg/dl AST 9 L (13-39) U/L ALT 15 (7-52) U/L Alkaline Phosphatase 78 (34-104) U/L C-Reactive Protein 5.70 H (0-0.5) mg/dl Total Protein 7.3 (6.0-8.3) gm/dl Albumin 3.6 (3.4-5.0) gm/dl Globulin 3.7 (2.5-4.0) gm/dl Albumin/Globulin Ratio 1.0 (0.9-2) Procalcitonin (0-0.5) ng/ml SARS-CoV-2, RNA, NAAT (NEGATIVE) 01/28/22 01/28/22 01/28/22 Range/Units 07:49 07:49 09:50 WBC (4.8-10.8) K/ul RBC (3.93-5.22) M/uL Hgb (12.0-16.0) g/dl Hct (34.1-44.9) % MCV (80.0-100.0) fL MCH (25.0-34.0) pg MCHC (32.0-36.0) g/dL RDW Std Deviation (36.4-46.3) fL RDW Coeff of Ashley (11.5-14.5) % Plt Count (130-400) K/uL MPV (9.4-12.3) fL Immature Gran % (Auto) % Neut % (Auto) % Lymph % (Auto) % Canadian % (Auto) % Eos % (Auto) % Baso % (Auto) % Neut # (Auto) (1.4-6.5) K/uL Lymph # (Auto) (1.2-3.4) K/uL Canadian # (Auto) (0.24-0.82) K/uL Eos # (Auto) (0-0.50) K/uL Baso # (Auto) (0-0.2) K/uL Immature Gran # (Auto) (0.00-0.02) K/uL Polychromasia ESR (0-20) mm/hr Sodium (136-145) mmol/L Potassium (3.5-5.1) mmol/L Chloride (98-107) mmol/L Carbon Dioxide (21-32) mmol/L Anion Gap (3-11) BUN (6-23) mg/dl Creatinine (0.6-1.2) mg/dl Est Cr Clr Drug Dosing ml/min Est GFR ( Amer) ml/min Est GFR (Non-Af Amer) ml/min BUN/Creatinine Ratio (10-20) Glucose (70-99(Fasting)) mg/dl Estimat Average Glucose 286 mg/dl Hemoglobin A1c 11.6 H (4.5-5.6) % Calcium (8.5-10.1) mg/dl Total Bilirubin (0.2-1.0) mg/dl AST (13-39) U/L ALT (7-52) U/L Alkaline Phosphatase (34-104) U/L C-Reactive Protein (0-0.5) mg/dl Total Protein (6.0-8.3) gm/dl Albumin (3.4-5.0) gm/dl Globulin (2.5-4.0) gm/dl Albumin/Globulin Ratio (0.9-2) Procalcitonin 0.05 (0-0.5) ng/ml SARS-CoV-2, RNA, NAAT NEGATIVE (NEGATIVE) Administered Medications Discontinued Medications Sodium Chloride (Nss 1000ml) 1,000 mls @ 999 mls/hr IV .Q1H1M ONE Stop: 01/28/22 09:55 Last Infusion: 01/28/22 10:13 Dose: 0 mls/hr Documented By: Admin: 01/28/22 09:08 Dose: 999 mls/hr Documented By: OL Clindamycin Phosphate (Cleocin/D5w) 900 mg in 50 mls @ 100 mls/hr IV NOW ONE Stop: 01/28/22 09:28 Last Infusion: 01/28/22 10:31 Dose: 0 mls/hr Documented By: Admin: 01/28/22 09:57 Dose: 100 mls/hr Documented By: ARS Morphine Sulfate (Morphine Sulfate 4 Mg/Ml 1 Ml Carp\Vial) 4 mg IV NOW STA Stop: 01/28/22 07:34 Last Admin: 01/28/22 07:51 Dose: 4 mg Documented By: ARS Imaging Data Radiologist's Impression: Thoracic Spine X-Ray 01/28/22 07:33 THORACIC SPINE 3 VIEWS HISTORY: back pain COMPARISON: None. FINDINGS: There is no fracture. No subluxation. Paraspinal soft tissues are unremarkable. 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 This is most pronounced within the mid thoracic spine. IMPRESSION: Mild to moderate degenerative changes within the thoracic spine. No fractures. ACT 112: Negative or not required by law. Electronically signed by: Stephen Rodriguez M.D. 01/28/2022 9:28 AM Discharge Plan Visit Data Chief Complaint: Infection, Wound Stated Complaint: MID BACK PAIN ED Provider: Tunde Chang ED Midlevel Provider: Mauro De Guzman Discharge Problem: Abscess, Tobacco use, Acute dehydration, Back pain, Acute hyperglycemia Patient Disposition: Admitted As Inpatient Discharge Instructions Interventions: ED Discharge Assessment Last Done: 01/28/22 13:25
[2022-01-28 08:31] LABS: Basophils # (auto) 0.07 K/uL (0-0.2); Basophils % (auto) 0.5 %; Eosinophils % (auto) 1.3 %; Immature Granulocytes # (auto) 0.07 K/uL (0.00-0.02); Immature Granulocytes % (auto) 0.5 %; Lymphocytes # (auto) 5.11 K/uL (1.2-3.4); Lymphocytes % (auto) 32.9 %; Monocytes # (auto) 1.19 K/uL (0.24-0.82); Monocytes % (auto) 7.7 %; Neutrophils % (auto) 57.1 %; Polychromasia 1+
[2022-01-28 08:47] LABS: Albumin Level 3.6 gm/dl (3.4-5.0); Bilirubin,Total 0.4 mg/dl (0.2-1.0); C Reactive Protein 5.7 mg/dl (0-0.5); Calcium 8.7 mg/dl (8.5-10.1); Creatinine Clr Calc Pharmacy 129.5 ml/min; Est GFR (African American) 95.9 ml/min; Est GFR (Non-African American) 82.8 ml/min; Globulin 3.7 gm/dl (2.5-4.0); Potassium 3.8 mmol/L (3.5-5.1); Total Protein 7.3 gm/dl (6.0-8.3)
[2022-01-28] MEDS ORDERED: SODIUM CHLORIDE 0.9% 1000ML 1,000 ML IV ONE (08:55)
[2022-01-28] MEDS ORDERED: CLINDAMYCIN/D5W 900 MG/50 ML BAG IV ONE (08:59)
--- NOTE | 2022-01-28 09:29 | XRay Report ---
THORACIC SPINE 3 VIEWS HISTORY: back pain COMPARISON: None. FINDINGS: There is no fracture. No subluxation. Paraspinal soft tissues are unremarkable. There is m ild to moderate degenerative disc disease throughout the thoracic spine. This is most pronounced with in the mid thoracic spine. IMPRESSION: Mild to moderate degenerative changes within the thoracic spine. No fractures. ACT 112: Negative or not required by law. Electronically signed by: Stephen Rodriguez M.D. 01/28/2022 9:28 AM
[2022-01-28 10:08] LABS: Estimated Average Glucose 286 mg/dl; Hemoglobin A1C 11.6 % (4.5-5.6)
--- NOTE | 2022-01-28 10:14 | History & Physical Report ---
Date of Service January 28, 2022 Assessment & Plan (1) Hidradenitis suppurativa: Plan: - Has several areas with scar tissue from previous abscesses in b/l axilla, breast folds, abdomen, and groin consistent with hydradenitis suppurativa. - There is no active purulent drainage for wound collection. - General surgery consult and antibiotics as above. - Recommend seeing dermatology as outpatient for management, as well as an medical office assistant to determine if she has a true penicillin allergy in order to guide options for treatment in the future. (2) Back pain: Plan: - 1 day of thoracic pain with development of small, nickel sized lump c/w fluid collection. - Will order soft tissue U/S and have general surgery on consult to determine if this collection is drainable. - Received clindamycin in ED; will hold off on further abx pending blood cultures and general surgery to weigh in regarding potential for drainage. - If no indication for drainage, pt is reportedly penicillin allergic--unknown reaction--therefore, if indication for drainage by general surgery, will will treat with daptomycin, Levaquin, and metronidazole. (3) Diabetes: Plan: - BSG 471, A1c 11.6%--will start patient on basal/bolus insulin while here and have life skills educator/pharmacy glycemic consult placed for assistance with meeting patient's insulin needs. - Patient counseled on need for weight loss and insulin to better control her diabetes as well as minimize infections, recommend she follow-up with her PCP for ongoing management of her diabetes. Plan - Admit to med/surg. - SCDs encouraged, will defer on chemoppx given age, mobility. - Full Code. History of Present Illness Chief Complaint: mid back pain x 2 days Primary Care Provider: NO PCP Liv Chester is a 37-year-old female with a past medical history significant for skin abscesses who is presenting today with chest pain. For the past days she has had upper back pain, tender to palpation in this morning and noticed the development of a small lump along her spine in the area that she is having pain. She ran of her ibuprofen at home, which had previously been controlling the pa in. She is presenting today with concerns for back pain, as well as bilateral groin pain and swelling due to recent abscesses that she says have drained recently. She has a longstanding history since she was 16 of multiple fluid collections and abscesses throughout her body. She has seen dermatology before and had them drained and packed, however the past 2 years has been managing them at home. She is also required antibiotics in the past for these and was told it is cellulitis. Over the past 2 months, she has had increased swelling and drainage from abscesses in her bilateral groin. She denies any fever or chills, abdominal pain, nausea, vomiting, or pain other than in her back and groin from the swelling. She does not have a history of diabetes or drug use. On presentation to the ED, she has been tachycardic, otherwise vital signs within normal limits and stable. Labs are notable for a white count of 15 with left shift, ESR 50, CRP 5.70. Her glucose is 471 on BMP and an A1c was checked, 11.6%. Na 129, corrects to ~13 when accounting for hyperglycemia. Thoracic spine x-ray without any acute abnormalities. Allergies Allergy/AdvReac Type Severity Reaction Status Date / Time codeine Allergy Severe BLOOD CLOT Verified 07/17/21 23:30 Cephalosporins Allergy Intermediate HIVES Verified 07/17/21 23:30 hydrocortisone Allergy Mild RASH Verified 07/17/21 23:30 neomycin Allergy Mild RASH Verified 07/17/21 23:30 polymyxin B Allergy Mild RASH Verified 07/17/21 23:30 Home Medications Medication Instructions Recorded Confirmed Type acetaminophen 500 mg tablet 1,000 mg PO TID PRN Pain 07/17/21 07/17/21 History (Tylenol Extra Strength) albuterol sulfate 90 mcg/actuation 2 puffs inhalation 6XD PRN 07/17/21 Rx aerosol inhaler shortness of breath or wheezing #6.7 grams benzonatate 100 mg capsule 100 mg PO TID PRN cough #15 caps 07/17/21 Rx Past Med/Surg History Medical History Abscess Breast abscess of female Diabetes Pyelonephritis Surgical History Hx of cholecystectomy Hx of tonsillectomy S/P spinal fusion Social History Smoking Status: Current every day smoker Tobacco Type: Cigarettes Preferred Language: Portuguese Feels Safe at Home: Yes Review of Systems Review of Systems: Constitutional: No fever/chills, weakness, fatigue, myalgias, anorexia, night sweats Eyes: No diplopia, no worsening or blurred vision ENT: normal hearing, no trouble swallowing Respiratory: No cough, sputum, dyspnea at rest or on exertion Cardiovascular: No chest pain, tightness or palpitations Abdomen: No pain, nausea, vomiting, diarrhea or constipation : b/l swelling, drainage in groin x 1 month with increased pain x 1 day; Denies dysuria, hematuria, increased urgency/frequency, urinary retention Musculoskeletal: mid back pain x 1 day; No joint pain, calf pain, swelling Neurologic: No weakness, numbness/tingling, or balance problems Psychiatric: No anxiety or depression Skin: No rash or itch Physical Exam Physical Exam: General: awake, alert, no apparent distress Head: Normocephalic, atraumatic ENT: PERRL, EOMI, no pharyngeal exudate, mucous membranes moist Chest: Clear to auscultation, on room air, no adventitious breath sounds Cardiac: Regular rate and rhythm, no murmur, no JVD, normal peripheral pulses, good capillary refill Abdominal: NABS x 4 quadrants, soft, nontender to palpation, no rebound, guarding or tenderness Extremities: Normal inspection, no peripheral edema or erythema, calfs nontender to palpation Psych: Normal mood and affect Neuro: AAO x 3, strength intact bilaterally and rated 5/5, no motor deficits, speech is clear, no peripheral sensory deficits Skin: multiple areas of skin changes under b/l breasts, axilla, abdomen, and groin c/w hidradenitis suppurativa Results & Data Results & Data ([facility]) Vital Signs (Past 12 Hours) Vital Signs Temp Pulse Pulse Resp BP BP Pulse Ox 01/28/22 09:16 100 H 18 112/75 96 01/28/22 07:18 36.5 C 111 H 16 140/83 98 O2 Del Method 01/28/22 09:16 Room Air 01/28/22 07:18 Room Air Laboratory Results Abnormal lab results 01/28/22 01/28/22 01/28/22 Range/Units 07:49 07:49 07:49 WBC 15.54 H (4.8-10.8) K/ul Plt Count 413 H (130-400) K/uL Neut # (Auto) 8.90 H (1.4-6.5) K/uL Lymph # (Auto) 5.11 H (1.2-3.4) K/uL [place] # (Auto) 1.19 H (0.24-0.82) K/uL Immature Gran # (Auto) 0.07 H (0.00-0.02) K/uL ESR 50 H (0-20) mm/hr Sodium 129 L (136-145) mmol/L Chloride 97 L (98-107) mmol/L Glucose 471 H* (70-99(Fasting)) mg/dl Hemoglobin A1c (4.5-5.6) % AST 9 L (13-39) U/L C-Reactive Protein 5.70 H (0-0.5) mg/dl 01/28/22 Range/Units 07:49 WBC (4.8-10.8) K/ul Plt Count (130-400) K/uL Neut # (Auto) (1.4-6.5) K/uL Lymph # (Auto) (1.2-3.4) K/uL [place] # (Auto) (0.24-0.82) K/uL Immature Gran # (Auto) (0.00-0.02) K/uL ESR (0-20) mm/hr Sodium (136-145) mmol/L Chloride (98-107) mmol/L Glucose (70-99(Fasting)) mg/dl Hemoglobin A1c 11.6 H (4.5-5.6) % AST (13-39) U/L C-Reactive Protein (0-0.5) mg/dl Diagnostic Findings Thoracic Spine X-Ray 01/28/22 07:33 THORACIC SPINE 3 VIEWS HISTORY: back pain COMPARISON: None. FINDINGS: There is no fracture. No subluxation. Paraspinal soft tissues are unremarkable. 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 This is most pronounced within the mid thoracic spine. IMPRESSION: Mild to moderate degenerative changes within the thoracic spine. No fractures. ACT 112: Negative or not required by law. Electronically signed by: Stephen Rodriguez M.D. 01/28/2022 9:28 AM Code Status & VTE Plan Code Status Full Code. PG Care Time/CCT Total # of Minutes Spent Total Time Spent with Patient: Total time spent is greater than 50% in coordination of care (as documented) at patient's floor/unit and/or counseling patient: Coding Level of Care Code INT OBSERVATION CARE 70M LVL 3 Diagnoses Hidradenitis suppurativa L73.2 Back pain M54.9 Diabetes E11.9
[2022-01-28] MEDS ORDERED: PHARMACY GLYCEMIC MGMT CONSULT PRN (13:26)
[2022-01-28] MEDS ORDERED: ONDANSETRON INJ 2 MG/ML 2 ML VIAL IV PRN (13:26)
[2022-01-28] MEDS ORDERED: GLUCOSE 10 TAB/TUBE PO PRN (13:26)
[2022-01-28] MEDS ORDERED: DEXTROSE 50% 50 ML SYRINGE IV PRN (13:26)
[2022-01-28] MEDS ORDERED: ACETAMINOPHEN 500 MG TAB PO PRN (13:26)
[2022-01-28] MEDS ORDERED: CARBOHYDRATES FOR HYPOGLYCEMIA PO PRN (13:26)
[2022-01-28] MEDS ORDERED: POLYETHYLENE (MIRALAX) 17 GM PACK PO PRN (13:26)
[2022-01-28] MEDS ORDERED: GLUCOSE 40% GEL 15 GM TUBE PO PRN (13:26)
[2022-01-28] MEDS ORDERED: GLUCAGON FOR INJ 1 MG VIAL SQ PRN (13:26)
[2022-01-28] MEDS ORDERED: INSULIN ASPART PER UNIT SC SCH (13:46)
--- NOTE | 2022-01-28 13:49 | Ultrasound Report ---
US softtissue chstwall/uprback CLINICAL HISTORY: mid/upper back abscess TECHNIQUE: Real-time grayscale sonographic images of the chest wall just left of midline at T9 were o btained. Comparison: None available at the time of this dictation. FINDINGS/IMPRESSION: 2 x 3 mm subcutaneous hypoechoic lesion may represent a tiny sebaceous cyst. ACT 112: Negative or not required by law. Electronically signed by: Amari Richardson M.D. 01/28/2022 1:47 PM
[2022-01-28] MEDS ORDERED: LANTUS PER UNIT CHARGE SQ ONE (14:00)
[2022-01-28] MEDS: LANTUS PER UNIT CHARGE SQ ONE ×2 (14:32→14:38)
--- NOTE | 2022-01-28 14:39 | Pharmacy Report ---
Pharmacy Glycemic Short Note 2 - Date of Service January 28, 2022 - Glycemic Short BSG Results (Last 24 hours): 01/28/22 01/28/22 07:49 14:23 Glucose 471 H* POC Glucose 317 H* OUTPATIENT ANTIDIABETIC REGIMEN: * N/A HbA1c: 11.6% (01/28/22) ASSESSMENT: * CR is a 37 year old obese female admitted with hidradenitis suppurativa * BSG on admission of 471 mg/dL, no anion gap, serum bicarbonate WNL * Given 1 L NSS bolus in ED and BSG decreased to 317 mg/dL * HbA1c elevated at 11.6%, will order one-time basal dose ~equivalent to full adjusted-body weight-based/stress of 2 dose with ~corresponding Novolog para meters per calculator * Surgery consulted, diet ordered at this time * CDE consulted, patient will require antidiabetic regimen on discharge PLAN FOR INPATIENT GLYCEMIC CONTROL: * Hold outpatient oral diabetes medications * Basal insulin * Lantus 30 units SC x 1 (~0.2 unit/kg actual body weight) * Bolus insulin * NovoLog per scale ACHS or Q6hrs while NPO * Goal Range: Low 110 mg/dL - High 140 mg/dL * Correction Factor: 25 mg/dL/unit * Nutritional / Prandial insulin per carb ratio of 1 unit per 7 grams CHO consumed * , checks with same parameters
--- NOTE | 2022-01-28 14:51 | Surgery Consultation ---
Date of Consultation January 28, 2022 Assessment & Plan (1) Inflamed sebaceous cyst: 37-year-old poorly controlled diabetic morbidly obese female with hidradenitis as well as what appears to be an inflamed sebaceous cyst of her back. There is no indication for incision and drainage or excision at this time. Would recommend continued antibiotics either as an inpatient or outpatient. She should follow-up with dermatology regarding her hidradenitis for improved management. She would benefit from better long-term glucose control. She can follow-up as an outpatient in 6 to 8 weeks for possible excision of cyst if still remains. No surgical indication at this time Antibiotics, better glucose control Follow-up with dermatology as an outpatient Surgery will sign off, call with questions or concerns Can follow-up in clinic in 6 to 8 weeks if cyst still present (2) Hidradenitis suppurativa: (3) Tobacco use: (4) Diabetes: (5) Morbid obesity: History of Present Illness Attending Physician: Gunnar Talbert MD History of Present Illness 37-year-old obese female presented to the emergency department with back pain and draining wounds of her groin. She has had several episodes of groin abscesses in the past but usually drained on their own. She also noticed some pain in her back and was concerned. She denies any history of diabetes though it is documented in her chart. She has not seen dermatology for hidradenitis in the past. Allergies Allergy/AdvReac Type Severity Reaction Status Date / Time codeine Allergy Severe BLOOD CLOT Verified 07/17/21 23:30 Cephalosporins Allergy Intermediate HIVES Verified 07/17/21 23:30 hydrocortisone Allergy Mild RASH Verified 07/17/21 23:30 neomycin Allergy Mild RASH Verified 07/17/21 23:30 polymyxin B Allergy Mild RASH Verified 07/17/21 23:30 Home Medications Medication Instructions Recorded Confirmed Type acetaminophen 500 mg tablet 1,000 mg PO TID PRN Pain 07/17/21 07/17/21 History (Tylenol Extra Strength) albuterol sulfate 90 mcg/actuation 2 puffs inhalation 6XD PRN 07/17/21 Rx aerosol inhaler shortness of breath or wheezing #6.7 grams benzonatate 100 mg capsule 100 mg PO TID PRN cough #15 caps 07/17/21 Rx Patient History Medical History (Updated 01/28/22 @ 14:48 by Rosalino Lyles DO, FACS) Abscess Breast abscess of female Diabetes Inflamed sebaceous cyst Morbid obesity Pyelonephritis Surgical History Hx of cholecystectomy Hx of tonsillectomy S/P spinal fusion Social History Smoking Status: Current every day smoker Tobacco Type: Cigarettes Preferred Language: Angolan Feels Safe at Home: Yes Physical Exam Constitutional: WD/WN, vitals as above + morbidly obese Skin: no rashes, warm and dry Bilateral groins with likely hidradenitis s uppurativa, draining wound to the left groin. No indication for I&D. On the back there is an area of tenderness and slight induration with a small punctate fluid collection consistent with a sebaceous cyst. Results & Data ([facility]) Vital Signs (Past 12 Hours) Vital Signs Temp Pulse Pulse Resp BP BP Pulse Ox 01/28/22 14:00 88 15 160/79 H 98 01/28/22 13:00 88 18 01/28/22 12:50 94 H 20 01/28/22 12:40 94 H 19 01/28/22 12:30 91 H 16 01/28/22 12:20 90 18 01/28/22 12:10 104 H 19 01/28/22 12:06 134/79 01/28/22 12:06 94 H 25 H 01/28/22 11:10 98 H 15 01/28/22 11:00 104 H 18 118/86 97 01/28/22 11:00 118/86 01/28/22 11:00 92 H 9 L 01/28/22 10:00 100 H 29 H 128/92 97 01/28/22 10:00 139/98 98 01/28/22 09:06 112/75 95 01/28/22 08:18 105 H 16 97 01/28/22 08:09 103 H 14 96 01/28/22 09:16 100 H 18 112/75 96 01/28/22 07:18 36.5 C 111 H 16 140/83 98 O2 Del Method 01/28/22 14:00 01/28/22 13:00 01/28/22 12:50 01/28/22 12:40 01/28/22 12:30 01/28/22 12:20 01/28/22 12:10 01/28/22 12:06 01/28/22 12:06 01/28/22 11:10 01/28/22 11:00 Room Air 01/28/22 11:00 01/28/22 11:00 01/28/22 10:00 01/28/22 10:00 01/28/22 09:06 01/28/22 08:18 01/28/22 08:09 01/28/22 09:16 Room Air 01/28/22 07:18 Room Air Diagnostic Findings US softtissue chstwall/uprback CLINICAL HISTORY: mid/upper back abscess TECHNIQUE: Real-time grayscale sonographic images of the chest wall just left of midline at T9 were obtained. Comparison: None available at the time of this dictation. FINDINGS/IMPRESSION: 2 x 3 mm subcutaneous hypoechoic lesion may represent a tiny sebaceous cyst. PG Care Time/CCT Total # of Minutes Spent Total Time Spent with Patient: Total time spent is greater than 50% in coordination of care (as documented) at patient's floor/unit and/or counseling patient: Coding Level of Care Code 83937 Office/OBS Consult Lvl 2 Diagnoses Inflamed sebaceous cyst L72.3 Hidradenitis suppurativa L73.2 Tobacco use Z72.0 Diabetes E11.9 Morbid obesity E66.01
--- NOTE | 2022-01-28 15:03 | Discharge Summary ---
Date of Service January 28, 2022 Admission HPI Per Admitting Provider Liv Chester is a 37-year-old female with a past medical history significant for skin abscesses who is presenting today with chest pain. For the past days she has had upper back pain, tender to palpation in this morning and noticed the development of a small lump along her spine in the area that she is having pain. She ran of her ibuprofen at home, which had previously been controlling the pain. She is presenting today with concerns for back pain, as well as bilateral groin pain and swelling due to recent abscesses that she says have drained recently. She has a longstanding history since she was 16 of multiple fluid collections and abscesses throughout her body. She has seen dermatology before and had them drained and packed, however the past 2 years has been managing them at home. She is also required antibiotics in the past for these and was told it is cellulitis. Over the past 2 months, she has had increased swelling and drainage from abscesses in her bilateral groin. She denies any fever or chills, abdominal pain, nausea, vomiting, or pain other than in her back and groin from the swelling. She does not have a history of diabetes or drug use. On presentation to the ED, she has been tachycardic, otherwise vital signs within normal limits and stable. Labs are notable for a white count of 15 with left shift, ESR 50, CRP 5.70. Her glucose is 471 on BMP and an A1c was checked, 11.6%. Na 129, corrects to ~13 when accounting for hyperglycemia. Thoracic spine x-ray without any acute abnormalities. Admission Exam Per Admitting Provider General: awake, alert, no apparent distress Head: Normocephalic, atraumatic ENT: PERRL, EOMI, no pharyngeal exudate, mucous membranes moist Chest: Clear to auscultation, on room air, no adventitious breath sounds Cardiac: Regular rate and rhythm, no murmur, no JVD, normal peripheral pulses, good capillary refill Abdominal: NABS x 4 quadrants, soft, nontender to palpation, no rebound, guarding or tenderness Extremities: Normal inspection, no peripheral edema or erythema, calfs nontender to palpation Psych: Normal mood and affect Neuro: AAO x 3, strength intact bilaterally and rated 5/5, no motor deficits, speech is clear, no peripheral sensory deficits Skin: multiple areas of skin changes under b/l breasts, axilla, abdomen, and groin c/w hidradenitis suppurativa Principal Diagnosis sebaceous cyst/abscess diabetes Discharge Exam General: awake, alert, no apparent distress Head: Normocephalic, atraumatic ENT: PERRL, EOMI, no pharyngeal exudate, mucous membranes moist Chest: Clear to auscultation, on room air, no adventitious breath sounds Cardiac: Regular rate and rhythm, no murmur, no JVD, normal peripheral pulses, good capillary refill Abdominal: NABS x 4 quadrants, soft, nontender to palpation, no rebound, guarding or tenderness Extremities: Normal inspection, no peripheral edema or erythema, calfs nontender to palpation Psych: Normal mood and affect Neuro: AAO x 3, strength intact bilaterally and rated 5/5, no motor deficits, speech is clear, no peripheral sensory deficits Skin: multiple areas of skin changes under b/l breasts, axilla, abdomen, and groin c/w hidradenitis suppurativa Discharge Data Allergies Allergy/AdvReac Type Severity Reaction Status Date / Time codeine Allergy Severe BLOOD CLOT Verified 07/17/21 23:30 Cephalosporins Allergy Intermediate HIVES Verified 07/17/21 23:30 hydrocortisone Allergy Mild RASH Verified 07/17/21 23:30 neomycin Allergy Mild RASH Verified 07/17/21 23:30 polymyxin B Allergy Mild RASH Verified 07/17/21 23:30 Consultations 01/28/22 09:12 ED Decision to Admit Stat 01/28/22 11:02 Consult General Surgery Routine Ordered Studies 01/28/22 11:03 [facility] Routine Hospital Course (1) Hidradenitis suppurativa: - Has several areas with scar tissue from previous abscesses in b/l axilla, breast folds, abdomen, and groin consistent with hydradenitis suppurativa. - There is no active purulent drainage for wound collection. - General surgery consult--> no indication for drainage at this point, recommending continuing abx and f/u with general surgery as outpatient if the site continues to be painful or continues to increase in size. - Recommend seeing dermatology as outpatient for management, as well as an director of religious activities to determine if she has a true penicillin allergy in order to guide options for treatment in the future. (2) Back pain: - 1 day of thoracic pain with development of small, nickel sized lump c/w fluid collection. - Will order soft tissue U/S and have general surgery on consult to determine if this collection is drainable. - Received clindamycin in ED; will hold off on further abx pending blood cultures and general surgery to weigh in regarding potential for drainage. - d/c'd on doxycycline for sebaceous cyst/possible abscess. (3) Diabetes: - BSG 471, A1c 11.6%--will start patient on basal/bolus insulin while here and have clinical trial educator/pharmacy glycemic consult placed for assistance with meeting patient's insulin needs. - She refused insulin while in the hospital. - Patient counseled on need for weight loss and insulin to better control her diabetes as well as minimize infections, recommend she follow-up with her PCP for ongoing management of her diabetes. Plan Discharge home AMA. Total Time Total Time Spent Total Time Spent (In Minutes): 30 Discharge Plan Discharge Items Patient Disposition: Against Medical Advice Reason For Visit: SKIN INFECTION Discharge Diagnosis: sebaceous cyst/possible abscess diabetes Activity: Resume your previous activity Bathing: No limitations Exercise/Sports: As tolerated Driving/Machine Use: No limitations Weightbearing: Full weightbearing Non-emergency contact: Primary Care Provider Call non-emergency contact if: you have any medication questions, your symptoms worsen, your pain is not controlled, you have a fever, your wound has increased redness, your wound has increased drainage and your wound pain has increased Follow-up/Referrals: PCP,NO [Primary Care Provider] - Diet: Carb Consistent or DM2 Addtl Attending Provider Instructions: Please follow up with your PCP for type 2 diabetes. Please follow up with dermatology for possible hidradenitis. If sebaceous cyst does not improve, please follow up with general surgery for possible removal. Pending Studies at Discharge: No Stand-Alone Forms: My AMDL, Smoking Cessation Skilled Items Patient informed of condition?: Yes Medications and DC Order Prescriptions: New doxycycline hyclate 100 mg capsule 100 mg PO BID 7 Days Qty: 14 0RF Continued benzonatate 100 mg capsule 100 mg PO TID PRN (Reason: cough) Qty: 15 0RF albuterol sulfate 90 mcg/actuation HFA aerosol inhaler 2 puffs INH 6XD PRN (Reason: shortness of breath or wheezing) Qty: 6.7 0RF acetaminophen [Tylenol Extra Strength] 500 mg Tablet 1,000 mg PO TID PRN (Reason: Pain) Discharge Orders: Left Against Medical Advice (Routine); Ordered 01/28/22 Ordered By: Dana Shannon/Other Patient Handouts: Managing Diabetes: The A1C Test, ED Diabetes- Overview Admission Data Admit Date/Time: 01/28/22 11:02 Attending Provider: Gunnar Talbert Admit Provider: Gunnar Talbert Primary Care Provider: PCP,NO Other Providers: Rosalino Lyles ; Gunnar Rodriguez Coding Level of Care Code OBSERV/HOSP SAME DATE LVL 3 Diagnoses Hidradenitis suppurativa L73.2 Back pain M54.9 Diabetes E11.9
[2022-01-29] MEDS ORDERED: INSULIN ASPART PER UNIT SC SCH
[2022-01-29 09:54] LABS: A calco-baum cmplx NotReported Not Detected (NotDetected); Bact fragilis Not Reported Not Detected (NotDetected); C auris Not Reported Not Detected (NotDetected); Calbicans Not Reported Not Detected (NotDetected); Candida glabrata Not Reported Not Detected (NotDetected); Candida krusei Not Reported Not Detected (NotDetected); Cneoformans/gatti Not Reported Not Detected (NotDetected); Cparapsilosis Not Reported Not Detected (NotDetected); Ctropicalis Not Reported Not Detected (NotDetected); E cloacae compx Not Reported Not Detected (NotDetected); Efaecalis Not Reported Not Detected (NotDetected); Efaecium Not Reported Not Detected (NotDetected); Enterobacterales Not Reported Not Detected (NotDetected); Escherichia coli Not Reported Not Detected (NotDetected); H influenzae Not Reported Not Detected (NotDetected); K aerogenes Not Reported Not Detected (NotDetected); Koxytoca Not Reported Not Detected (NotDetected); Kpneumoniae grp Not Reported Not Detected (NotDetected); Lmonocyt Not Reported Not Detected (NotDetected); N meningitidis Not Reported Not Detected (NotDetected); P aeruginosa Not Reported Not Detected (NotDetected); Proteus spp Not Reported Not Detected (NotDetected); Salmonella spp Not Reported Not Detected (NotDetected); Smarcescens Not Reported Not Detected (NotDetected); Staph lugdunensis Not Reported Not Detected (NotDetected); Staphaureus Not Reported Not Detected (NotDetected); Stenmaltophilia Not Reported Not Detected (NotDetected); Strep agal(GrpB) Not Reported Not Detected (NotDetected); Strep pneum Not Reported Not Detected (NotDetected); Strep pyog (GrpA) Not Reported Not Detected (NotDetected); Strep spp Not Reported Not Detected (NotDetected); mecAC Resistant Gene Not Detected (NotDetected)
[2022-01-29 10:27] LABS: Staph spp. Not Reported DETECTED (NotDetected); Staphepi Not Reported DETECTED (NotDetected); Staphylococcus epidermidis DETECTED (NotDetected); Staphylococcus spp. DETECTED (NotDetected)
== END 2022-01-28 15:47 | disposition left against medical advice (07) ==
LOC: ED 07:15 → EDINP 07:15